=== PATIENT | male | born 1965 | race Caucasian/White ===

== ENCOUNTER 2020-11-27 21:32 | Emergency (ER) | payer MEDICAID, SELFPAY ==
[2020-11-27 21:41] VITALS: BP 101/68; PULSE 90; RESP 18; TEMP 39; O2SAT 97
--- NOTE | 2020-11-27 22:00 | DI.RAD_ITS ---
Exam(s) XR ANKLE LT COMPLETE EXAM: XR ANKLE LT COMPLETE CLINICAL HISTORY: L ankle sprain, r/o fx. TECHNIQUE: 2D digital imaging was performed. COMPARISON: No exams were available for comparison FINDINGS: There is no evidence of acute fracture or widening of mortise. No obvious abnormality in the talar d ome. Os trigonum noted. Some degenerative change in the anterior aspect of the tibiotalar joint is noted. Also dorsal bony excrescence at the talar neck. IMPRESSION: Findings as above but no acute fractures evident. DATA REPOSITORY: RADIATION DOSE DELIVERED:
--- NOTE | 2020-11-27 22:05 | W.ED.GENAD ---
Discharge Plan Disposition Patient Disposition: HOME Condition: Stable Discharge Details Clinical Impression: Left ankle sprain Primary Care Provider: Ibrahima Penn ED Provider: Kemi Pugh Home Meds and New Rx's Prescriptions: Continued trazodone 50 mg tablet 50 mg PO QHS Qty: 90 RF: 3 amlodipine 10 mg tablet 10 mg PO DAILY RF: 0 hydroxyzine HCl 25 mg tablet 25 mg PO .q8hr PRN (Reason: anxiety) RF: 0 pramipexole 0.125 mg tablet 0.125 mg PO QHS Qty: 90 RF: 0 escitalopram oxalate [Lexapro] 20 mg tablet 20 mg PO DAILY RF: 0 Discharge Instructions Instructions: Ankle Sprain (ED) Additional Instructions: Rest, ice, and elevate the affected area as much as possible. Alternate tylenol and motrin as needed and directed for pain. Follow-up with your primary care doctor in 1 week and with orthopedics if your symptoms do not improve or worsen. Return to the emergency department with any worsening or new concerning symptoms. Referrals: Fidencio Dickinson MD [ [id number] STAFF PHYSICIAN] - Discharge Data Discharge Date/Time-TO BE ENTERED AT DEPARTURE: 11/27/20 23:25 Discharge Physician: Kemi Pugh Medical Decision Making 55-year-old male presents with left ankle pain after twisting his ankle when he stepped into a pothole earlier today. A temperature of 102.2 was entered in error. Patient was afebrile. He has mild to moderate edema and tenderness to palpation to the left lateral ankle. No tenderness to palpation of foot. He is neurovascularly intact. No evidence of deformity. Patient referred for left ankle x-ray which was negative for acute findings. Patient placed in a walking boot. Advised on the importance of RICE. Given orthopedic follow-up information. Usual and customary return precautions given prior to discharge. Medical Records Medical records reviewed: Yes I reviewed the patient's medical records. Imaging Data Radiologic Study: Radiologist's impression: XR Left Ankle Exam date and time: 11/27/2020 10:06 PM Age: 55 years old Clinical indication: Other: L ankle sprain, R/O FX TECHNIQUE: Imaging protocol: XR Left ankle. Views: 3 or more views. COMPARISON: No relevant prior studies available. FINDINGS: Bones/joints: Ankle joint spacing and alignment are anatomic. [id number] marginal ankle joint degenerative spurring. No acute fracture or dislocation. Soft tissues: Normal. IMPRESSION: 1. No acute fracture. 2. Marginal ankle joint degenerative spurring. HPI General Mode of arrival: ambulatory. Date/Time Provider Initiated Documentation: 11/27/20 21:40. Limitations to Documentation: no limitations. Information obtained by: patient. HPI Narrative: Pt is a 55yo M who presents to the ED with a complaint of left ankle pain after twisting his ankle when he stepped into a pothole this morning. Patient states he is having pain in the left lateral ankle. He denies any foot pain. He has not taken any medication for pain. Related Data Home Medications Medication Instructions Recorded Confirmed amlodipine 10 mg tablet 10 mg PO DAILY 11/17/20 11/27/20 hydroxyzine HCl 25 mg tablet 25 mg PO .q8hr PRN tab 11/17/20 11/27/20 pramipexole 0.125 mg tablet 0.125 mg PO QHS #90 tab 11/17/20 11/27/20 escitalopram oxalate 20 mg tablet 20 mg PO DAILY 11/23/20 11/27/20 trazodone 50 mg tablet 50 mg PO QHS #90 tab 11/26/20 11/27/20 Previous Rx's Medication Instructions Recorded pramipexole 0.125 mg tablet 0.125 mg PO QHS #90 tab 11/17/20 trazodone 50 mg tablet 50 mg PO QHS #90 tab 11/26/20 Allergies Allergy/AdvReac Type Severity Reaction Status Date / Time lisinopril Allergy Severe facial Verified 11/27/20 21:43 swelling General Stated Complaint: Orthopedic SUMEET: 4 Review of Systems All systems reviewed & are unremarkable except as noted in HPI and below [facility] Medical History (Updated 11/27/20 @ 23:16 by Kemi Pugh DO) Anxiety and depression Cigar smoker History of alcohol dependence Hypertension Insomnia Restless leg syndrome Surgical History (Updated 11/18/20 @ 14:07 by Leyda Shaw) History of cholecystectomy History of colon resection History of ileostomy History of knee surgery Family History (Updated 11/23/20 @ 16:53 by Maliha Holland RN) Brother Alcohol abuse Father Cancer Stomach cancer Mother Depression Social History (Updated 11/26/20 @ 15:15 by Merna Reaves LPN) Smoking/Tobacco Use Status: Current-Occasional Tobacco Type: cigars Smokeless tobacco user: other Smoking risk assessment performed?: Yes Alcohol Intake: former Year quit: 2020 Drug use: Never Substance use type: does not use Adopted: No Caregiver/Support person: No Foster care: No Household members: other Housing: homeless Number of Children: 1 Communication Needs: None Education Level: high school Do you need help understanding health information?: Rarely current occupation: Unemployed - retired from [employer] Pets and animals: No Sexually active: Yes Do you think of yourself as: straight/heterosexual What is your relationship status?: How often do you talk on the phone with friends or family?: three or more times per week Do you belong to any clubs or organized social groups?: no Panel score (0-1 are the most socially isolated patients): 1 Cindi/Spiritism: Lutheran Seatbelt use: always Helmet use: Yes 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 Do you feel safe at home: Yes Do you feel safe in your relationship?: Yes Exam Const General: cooperative, healthy appearing and no acute distress HENMT Head: normal to inspection Mouth: oral mucosae normal Eyes General: appearance normal, both eyes and all related structures Neck Neck: normal visual inspection Resp Effort & Inspection: normal respiratory effort and able to speak in complete sentences Cardio Rate: regular rate Skin General skin exam: no rashes or lesions noted Neuro General: patient alert, patient awake and patient oriented x3 Motor: muscle tone normal throughout Extrem Other: Mild to moderate edema and tenderness to palpation L lateral malleolus. No ecchymoses. No deformity. No L 5th metatarsal tenderness. L DP/PT pulses intact. Psych Appearance: grossly normal Affect: normal affect Course Vital Signs Vital signs: Vital Signs Temperature 102.2 F H 11/27/20 21:41 Pulse 90 11/27/20 21:41 Respiratory Rate 18 11/27/20 21:41 Pulse Oximetry 97 11/27/20 21:41 Temperature 102.2 F H 11/27/20 21:41 Temperature Source Skin 11/27/20 21:41 Pulse 90 11/27/20 21:41 Respiratory Rate 18 11/27/20 21:41 Respiratory Effort Non-Labored 11/27/20 21:44 Blood Pressure Position Sitting 11/27/20 21:41 Pulse Oximetry 97 11/27/20 21:41 Oxygen Delivery Method Room Air 11/27/20 21:41 Oxygen Flow Rate 0 11/27/20 21:41 Pain Level 0 11/27/20 21:58
[2020-11-27 22:10] VITALS: BP 117/73; PULSE 80; RESP 16; TEMP 37; O2SAT 97
[2020-11-27] MEDS: Ibuprofen 600 MG TAB PO (22:39)
--- NOTE | 2020-11-27 22:48 | DI.VRAD_ITS ---
PROCEDURE INFORMATION: Exam: XR Left Ankle Exam date and time: 11/27/2020 10:06 PM Age: 55 years old Clinical indication: Other: L ankle sprain, R/O FX TECHNIQUE: Imaging protocol: XR Left ankle. Views: 3 or more views. COMPARISON: No relevant prior studies available. FINDINGS: Bones/joints: Ankle joint spacing and alignment are anatomic. [id number] marginal ankle joint degenerative spurring. No acute fracture or dislocation. Soft tissues: Normal. IMPRESSION: 1. No acute fracture. 2. Marginal ankle joint degenerative spurring. Dictated and Authenticated by: Jonathan Jones MD. Ordering:ABIMAEL Mcmullen MD
[2020-11-27] MEDS: oxyCODONE 5 MG TAB PO (23:26)
== END 2020-11-27 23:25 | disposition home or self-care (01) ==
PROVIDERS: Emergency Provider Physician Assistant; PCP Family Medicine
DX: S93.492A Sprain of other ligament of left ankle, initial encounter (principal); W17.2XXA Fall into hole, initial encounter; X50.9XXA Other and unspecified overexertion or strenuous movements or postures, initial encounter
CPT/HCPCS: 29515; 99283; 73610

== ENCOUNTER → 2021-06-30 12:45 | Outpatient (CLI) | payer BC, MEDICAID, SELFPAY ==
--- NOTE | 2021-06-30 10:50 | DI.RAD_ITS ---
Exam(s) XR THUMB LT EXAM: XR THUMB LT CLINICAL HISTORY: LT THUMB PAIN, M79.645, DECREASED STRENGTH, EVAL FOR ARTHRITIC CHANGES. TECHNIQUE: 2D digital imaging was performed. COMPARISON: No exams were available for comparison FINDINGS: 3 views No evidence of fracture nor dislocation phalanges. However, there is a small 1-2 millimeter calcific density seen adjacent to the neck the thumb metacarpal. This of questionable significance. Correla tion with site of tenderness is recommended. No erosions evident. No radiopaque foreign body. IMPRESSION: DATA REPOSITORY: RADIATION DOSE DELIVERED:
== END ==
PROVIDERS: PCP Family Medicine; Visit Provider Physician Assistant Medical
DX: M79.645 Pain in left finger(s) (principal); R93.7 Abnormal findings on diagnostic imaging of other parts of musculoskeletal system
CPT/HCPCS: 73140

== ENCOUNTER 2021-07-12 19:11 | Inpatient (IN) | payer BC, MEDICAID, SELFPAY ==
[2021-07-12] VITALS (18 sets, daily range): BP systolic 141–178; BP diastolic 68–131; PULSE 68–103; RESP 14–22; O2SAT 85–97
--- NOTE | 2021-07-12 20:15 | RT.EKG_ITS ---
APPROVED REPORT Exam: Resting ECG Reason for Exam: JORG ELUIS BUNN Patient Location: E HR:67 bpm ECG Measurements Heart Rate 67 AXIS TN 150 P 39 QRSd 99 QRS -17 QT 384 T 60 QTc 405 Conclusion Sinus rhythm...normal P axis, V-rate 60- 99
[2021-07-12 22:02] LABS: Abs Immature Grans 0.03 10^3/uL (0.0-0.06); Absolute Basophil Count 0.03 10^3/uL (0.0-0.2); Absolute Eosinophil Count 0.17 10^3/uL (0.0-0.7); Absolute Lymphocyte Count 3.02 10^3/uL (1.2-3.4); Absolute Monocyte Count 0.88 10^3/uL (0.1-0.8); Absolute Neutrophil Count 5.39 10^3/uL (1.2-6.7); Basophils % 0.3; Eosinophils % 1.8; HGB 15.6 g/dL (13.5-17.5); Immature Grans % 0.3; Lymphocytes % 31.7; MCH 30.1 pg (27.0-33.0); MCHC 33.9 % (32.0-36.0); MCV 88.8 fL (80-95); MPV 10.7 fL (8.0-11.0); Monocytes % 9.2; Neutrophils % 56.7; Nucleated RBC 0 %; Platelet Count 211 10^3/uL (130-400); RBC 5.18 10^6/uL (4.36-5.78); RDW 13.4 % (11.8-14.1); RDW-SD 44.2 fL; WBC 9.52 10^3/uL (4.4-10.8)
[2021-07-12 22:17] LABS: ALT 75 U/L (16-63); AST 57 U/L (15-37); Albumin 4.1 g/dL (3.4-5.0); Alkaline Phosphatase 255 U/L (46-116); Anion Gap 13.8 mmol/L (3-11); BUN 17 mg/dL (7-18); Bilirubin, Total 0.4 mg/dL (0.2-1.0); CO2 23.2 mmol/L (21.0-32.0); CREATININE 0.7 mg/dL (0.70-1.30); Calcium 9.1 mg/dL (8.5-10.1); Chloride 102 mmol/L (98-107); Glucose 90 mg/dL (74-106); Potassium 3.6 mmol/L (3.5-5.1); Sodium 139 mmol/L (136-145); Total Protein 9.1 g/dL (6.4-8.2)
[2021-07-12] MEDS: Normal Saline 1,000 ML 1000 ML IV (22:39)
[2021-07-12] MEDS: Albuterol/Ipratropium 3 ML UPD VIAL UPD (22:39)
[2021-07-12] MEDS: methylPREDNISolone SUCC 125 MG VIAL IVP (22:40)
--- NOTE | 2021-07-12 22:44 | W.ED.GENAD ---
Discharge Plan Disposition Patient Disposition: [facility] INPATIENT Condition: Fair Discharge Details Clinical Impression: Cough, Hypoxia Admit Date/Time: 07/13/21 05:11 Admit Provider: Jonathan Li Attending Provider: Jonathan Li Primary Care Provider: Ibrahima Penn ED Provider: Gabriela Kaplan Medical Decision Making 56-year-old male presents to the ER with chief complaint of upper respiratory type symptoms. 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 He reports diarrhea that began on . He endorses shortness of breath, fever, chest pain and lightheadedness. He is a daily smoker past medical history includes restless leg syndrome, alcohol dependence, anxiety depression, hypertension. Surgical history includes cholecystectomy, colon resection, ileostomy knee surgery. On inital exam patient has scattered expiratory wheezes and rhonchi in bases. Congested cough noted. CBC, CMP, CT chest abdomen pelvis ordered. DuoNeb, 125 Solu-Medrol IV ordered. Differential diagnosis includes anomaly to COVID-19, pneumonia, CHF, coronary artery disease. Rapid Covid is negative, CBC shows no leukocytosis, sodium potassium within normal limits anion gap 13.8, AST is 57, ALT 75, alk phos 255, Serial troponins, EKG and proBNP added on the labs. Informed by social staff worker that patient desatted to 85%. Patient was placed on 2 L nasal cannula. Care is to be handed off to oncoming provider Dr. Kaitlin Bower pending CT and disposition. DiSabatino 4: 24 patient resting more comfortably after nebs and steroids, still with some rhonchorous breath sounds of the wheezing has improved, saturating mid 90s on 1 L nasal cannula. Concern for developing COPD given history of chronic smoking. Must also consider early viral pneumonia or bacterial pneumonia however no definitive infiltrate on x-ray. Will be admitted for continued oxygen therapy and further evaluation. Lab Data Lab results reviewed: Yes I reviewed the patient's lab results. HPI General Mode of arrival: ambulatory. Date/Time Provider Initiated Documentation: 07/12/21 19:43. Limitations to Documentation: no limitations. Information obtained by: patient, RN notes reviewed and old records reviewed. HPI Narrative: 56-year-old male presents to the ER with chief complaint of upper respiratory type symptoms. Per patient report,he was told by his PCP to be seen in urgent care today however patient did not go. 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 He reports diarrhea that began on . He endorses shortness of breath, fever, chest pain and lightheadedness. He is a daily smoker, past medical history includes restless leg syndrome, alcohol dependence, anxiety depression, hypertension. Surgical history includes cholecystectomy, colon resection, ileostomy knee surgery. Related Data Home Medications Medication Instructions Recorded Confirmed escitalopram oxalate 20 mg tablet 20 mg PO DAILY 11/23/20 03/02/21 (Lexapro) sildenafil 50 mg tablet 50 mg PO DAILY PRN #20 tab 03/02/21 07/12/21 pramipexole 0.125 mg tablet 0.125 mg PO QHS #90 tab 03/08/21 amlodipine 10 mg tablet 10 mg PO DAILY #90 tab 05/28/21 07/12/21 hydroxyzine HCl 25 mg tablet 25 mg PO .q8hr PRN #90 tab 05/28/21 07/12/21 trazodone 100 mg tablet 100 mg PO QHS PRN #90 tab 05/28/21 Previous Rx's Medication Instructions Recorded sildenafil 50 mg tablet 50 mg PO DAILY PRN #20 tab 03/02/21 pramipexole 0.125 mg tablet 0.125 mg PO QHS #90 tab 03/08/21 amlodipine 10 mg tablet 10 mg PO DAILY #90 tab 05/28/21 hydroxyzine HCl 25 mg tablet 25 mg PO .q8hr PRN #90 tab 05/28/21 trazodone 100 mg tablet 100 mg PO QHS PRN #90 tab 05/28/21 Allergies Allergy/AdvReac Type Severity Reaction Status Date / Time lisinopril Allergy Severe facial Verified 07/12/21 22:42 swelling General Stated Complaint: RespSymp SUMEET: 3 Review of Systems All systems reviewed & are unremarkable except as noted in HPI and below Cardiovascular Cardiovascular: Reports dyspnea Respiratory Respiratory: Reports chest congestion, Reports cough, Denies hemoptysis, Reports excessive phlegm production and Reports dyspnea Gastrointestinal Gastrointestinal: Reports diarrhea PFSH All Active Problems (Updated 07/13/21 @ 11:30 by Néstor Valverde) Gastritis (Acute) DVT prophylaxis (Acute) COPD (chronic obstructive pulmonary disease) with acute bronchitis (Acute) Cough (Acute) Hypoxia (Acute) SARS-CoV-2 positive (Acute) Erectile dysfunction (Acute) Cervical arthritis (Acute) Left ankle sprain (Acute) Insomnia (Acute) Restless leg syndrome (Acute) Cigar smoker (Acute) Anxiety and depression (Chronic) History of alcohol dependence (Acute) Hypertension (Chronic) Surgical History History of cholecystectomy History of colon resection History of ileostomy History of knee surgery Family History Brother Alcohol abuse Father Cancer Stomach cancer Mother Depression Social History Smoking/Tobacco Use Status: Current-Occasional Tobacco Type: cigars Smokeless tobacco user: other Smoking risk assessment performed?: Yes Alcohol Intake: former Year quit: 2020 Drug use: Never Substance use type: does not use Adopted: No Caregiver/Support person: No Foster care: No Household members: other Housing: homeless Number of Children: 1 Communication Needs: None Education Level: high school Do you need help understanding health information?: Rarely current occupation: Unemployed - retired from [employer] Pets and animals: No Sexually active: Yes Do you think of yourself as: straight/heterosexual What is your relationship status?: How often do you talk on the phone with friends or family?: three or more times per week Do you belong to any clubs or organized social groups?: no Panel score (0-1 are the most socially isolated patients): 1 Cindi/Taoist: Hoahaoism Seatbelt use: always Helmet use: Yes 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 Constitutional: Alert and oriented x3. Appears stated age. Normal body habitus. Head: Normocephalic, Chest: RRR, Normal S1, S2, distal pulses intact. Resp: Expiratory wheezes scattered through the upper lobes bilaterally, diminished in some rhonchi noted to the lower lobe bilaterally. Abdomen: Soft, non-distended, Normoactive bowel sounds all 4 quads. Musculoskeletal: Normal gait, 5/5 strength to all four extremities. Skin: Capillary refill less than 2 sec. Neurologic: No focal neuro deficits noted. Course Vital Signs Vital signs: Vital Signs Pulse 79 07/12/21 19:39 Respiratory Rate 18 07/12/21 19:39 Blood Pressure 141/83 H 07/12/21 19:39 Pulse Oximetry 93 07/12/21 19:39 Pulse 79 07/12/21 19:39 Respiratory Rate 18 07/12/21 19:39 Respiratory Effort 07/12/21 22:41 Blood Pressure 141/83 H 07/12/21 19:39 Blood Pressure Position Sitting 07/12/21 19:39 Pulse Oximetry 93 07/12/21 19:39 Oxygen Delivery Method Room Air 07/12/21 19:39 Oxygen Flow Rate 0 07/12/21 19:39 Lab/Test Results Lab/Test Results: 07/12/21 21:52 Blood Blood Culture - Pending 07/12/21 21:41 Blood Blood Culture - Pending Laboratory Tests Range/Units 07/12/21 07/12/21 21:41 21:41 WBC (4.4-10.8) 10^3/uL 9.52 RBC (4.36-5.78) 10^6/uL 5.18 Hgb (13.5-17.5) g/dL 15.6 Hct (40.0-50.0) % 46.0 MCV (80-95) fL 88.8 MCH (27.0-33.0) pg 30.1 MCHC (32.0-36.0) % 33.9 RDW (11.8-14.1) % 13.4 Plt Count (130-400) 10^3/uL 211 MPV (8.0-11.0) fL 10.7 Immature Gran % 0.3 Neutrophils % 56.7 Lymphocytes % 31.7 Monocytes % 9.2 Eosinophils % 1.8 Basophils % 0.3 Nucleated RBC % % 0 Absolute Neutrophils (1.2-6.7) 10^3/uL 5.39 Absolute Lymphocytes (1.2-3.4) 10^3/uL 3.02 Absolute Monocytes (0.1-0.8) 10^3/uL 0.88 H Absolute Eosinophils (0.0-0.7) 10^3/uL 0.17 Absolute Basophils (0.0-0.2) 10^3/uL 0.03 Sodium (136-145) mmol/L 139 Potassium (3.5-5.1) mmol/L 3.6 Chloride (98-107) mmol/L 102 Carbon Dioxide (21.0-32.0) mmol/L 23.2 Anion Gap (3-11) mmol/L 13.8 H BUN (7-18) mg/dL 17 Creatinine (0.70-1.30) mg/dL 0.7 Estimated GFR/1.73 m2 (mL/min/1.73m2) >= 60.00 Glucose (74-106) mg/dL 90 Calcium (8.5-10.1) mg/dL 9.1 Total Bilirubin (0.2-1.0) mg/dL 0.4 AST (15-37) U/L 57 H ALT (16-63) U/L 75 H Alkaline Phosphatase (46-116) U/L 255 H Total Protein (6.4-8.2) g/dL 9.1 H Albumin (3.4-5.0) g/dL 4.1
[2021-07-12 22:54] LABS: Source Nasal/Nares
[2021-07-12 23:34] LABS: COVID-19 PCR Negative (Negative)
[2021-07-13] VITALS (63 sets, daily range): BP systolic 99–157; BP diastolic 62–102; PULSE 65–101; RESP 2–24; TEMP 36.5–37.1; O2SAT 89–95
--- NOTE | 2021-07-13 00:01 | DI.CT_ITS ---
Exam(s) CT CHEST PE ABD PELVIS W EXAM: CT CHEST PE ABD PELVIS W CLINICAL HISTORY: SOB, PUI, R/O PNA, PE ,Diarrhea, transaminases. TECHNIQUE: Imaging Protocol: Axial CT angiography was performed with multi-slice acquisition and mu lti-planar and/or 3D reconstructions. CONTRAST MATERIAL: Intravenous: Omnipaque 350 Contrast volume:100 mL COMPARISON: No exams were available for comparison FINDINGS: CHEST: Tracheobronchial tree: Patent where visualized. Pulmonary parenchyma: No consolidation or dominant measurable mass. No architectural distortion. Ther e does appear to be mild prominence of the interstitium in the lungs particularly on the right. Pulmonary Arteries: No evidence of filling defect to suggest pulmonary emboli. Mediastinum and Emeli: No dominant adenopathy or fluid collection. The esophagus is unremarkable. Visualized thyroid gland: Unremarkable. Pleura: No effusion or pneumothorax. Heart: The heart is not dilated. Coronary artery calcifications are present. No pericardial effusion . Aorta: Thoracic aorta non-dilated. No evidence of dissection. Atherosclerosis. Bones: Within normal limits for the patient's age. Soft tissues: Unremarkable. ABDOMEN: Liver: Normal density. No measurable mass. Portal, Superior Mesenteric, and Splenic Veins: Unremarkable. Gallbladder and Biliary Tract: Status post cholecystectomy. No biliary ductal dilatation. Pancreas: Normal density, no abnormal calcifications or inflammatory process. Spleen: Normal. Adrenals: No masses seen. Kidneys: Normal size, contour and axis. No radiodense stones or obstructive uropathy. No masses seen. Abdominal Aorta: Abdominal portion non-dilated. Atherosclerosis. Bowel: There is no evidence of bowel obstruction. Postsurgical changes are seen at the rectosigmoid junction and the distal small bowel. There is diverticulosis in the colon, but no evidence of acute diverticulitis. No evidence of appendicitis. There is mild wall thickening in loops of small bowel in the left abdomen suspicious for an enteritis. Peritoneal Cavity: No ascites, collection or mesenteric inflammatory response. No free air. Lymph Nodes: Within normal limits. Bones: Within normal limits for the patient's age. Soft Tissues: Small fat containing left inguinal hernia. PELVIS: Bladder: Symmetric distention, no gross wall thickening. Reproductive Organs: Unremarkable as visualized. Lymph Nodes: Within normal limits. Bones: Within normal limits. IMPRESSION: 1. No evidence pulmonary embolism, thoracic aortic dissection or aneurysm. 2. Question of mild interstitial thickening particularly in the right lung. Edema, inflammation or i nfection should be considered. Please correlate clinically. 3. Findings suspicious for enteritis. RADIATION DOSE DELIVERED: 1,182.92mGy.cm Total DLP DATA REPOSITORY: All CT scans at this facility are submitted to the National Radiology Data Registry (NRDR) Dose Index Registry (DIR) with the [employer] [place] [employer] (ACR). RADIATION OPTIMIZATION: All CT scans at this facility use at least one of these dose optimization te chniques: automated exposure control; mA and/or kV adjustment per patient size (includes targeted exa ms where dose is matched to clinical indication); or iterative reconstruction.
[2021-07-13] MEDS: Dexamethasone 10 MG/ML VIAL IVP (00:52)
[2021-07-13] MEDS: Albuterol/Ipratropium 3 ML UPD VIAL UPD ×4 (00:52→17:49)
[2021-07-13 01:23] LABS: NT-proBNP 21 pg/mL (<300); Troponin I < 50 ng/L (<or=60)
[2021-07-13] MEDS: Omnipaque 350 MG/ML 100 ML BTL IJ (01:25)
--- NOTE | 2021-07-13 02:01 | DI.VRAD_ITS ---
PROCEDURE INFORMATION: Exam: CTA Chest With Contrast Exam date and time: 07/13/2021 1:10 AM Age: 56 years old Clinical indication: Shortness of breath; Prior surgery; Surgery type: Colon resection, ileostomy, cholecystectomy; Patient HX: SOB, pui, R/O pna, pe , diarrhea, transaminases TECHNIQUE: Imaging protocol: Computed tomographic angiography of the chest with contrast. 3D rendering (Not supervised by radiologist): MIP and/or 3D reconstructed images were created by the technologist. Total images: [id number] Radiation optimization: All CT scans at this facility use at least one of these dose optimization techniques: automated exposure control; mA and/or kV adjustment per patient size (includes targeted exams where dose is matched to clinical indication); or iterative reconstruction. Contrast material: [id number]; Contrast volume: 100 ml; Contrast route: INTRAVENOUS (IV); COMPARISON: No relevant prior studies available. FINDINGS: Pulmonary arteries: The pulmonary arteries enhance appropriately with no evidence of pulmonary embolism. Aorta: The aorta enhances appropriately without evidence of dissection or aneurysm. No mediastinal hematoma. The aorta demonstrates mild ectasia/tortuosity and mild calcific atherosclerosis. Thyroid: The visualized thyroid gland demonstrates no gross abnormality. Lungs: Mild bilateral bronchial wall thickening consistent with bronchitis or bronchial edema. No bronchiectasis. A few short segment bronchial occlusions in the posterior right base probably relate to mucous plugging/secretions. Minor reticulonodular changes in the lateral right lower lobe and to a lesser degree the central right middle lobe and peripheral upper lobes suggesting changes of small airways disease, consider atypical infection. No consolidations. No pulmonary mass lesions are identified. Pleural spaces: No pleural effusion. No pneumothorax. Heart: Heart size normal. Moderate coronary artery calcification. No pericardial effusion. Mediastinal space: The esophagus is largely contracted but demonstrates no gross abnormality. Lymph nodes: No supraclavicular or axillary adenopathy. No mediastinal or hilar adenopathy. Bones/joints: No acute osseous abnormalities are identified. Chronic healed left anterolateral rib fractures. Soft tissues: Mild soft tissue stranding/edema in the posterior peripheral subcutaneous tissues suggesting mild volume overload or anasarca. IMPRESSION: 1. No evidence of pulmonary embolism or aortic dissection. 2. Bronchial wall thickening suggesting bronchitis/bronchiolitis versus bronchial edema. 3. Minor peripheral reticulonodular changes bilaterally likely reflecting changes of small airways disease, consider atypical infection. No consolidations. 4. Mild posterior soft tissue edema/stranding suggesting mild generalized volume overload/anasarca. PROCEDURE INFORMATION: Exam: CT Abdomen And Pelvis With Contrast Exam date and time: 07/13/2021 1:10 AM Age: 56 years old Clinical indication: Shortness of breath; Prior surgery; Surgery type: Colon resection, ileostomy, cholecystectomy; Patient HX: SOB, pui, R/O pna, pe , diarrhea, transaminases TECHNIQUE: Imaging protocol: Computed tomography of the abdomen and pelvis with contrast. Radiation optimization: All CT scans at this facility use at least one of these dose optimization techniques: automated exposure control; mA and/or kV adjustment per patient size (includes targeted exams where dose is matched to clinical indication); or iterative reconstruction. Contrast material: [id number]; Contrast volume: 100 ml; Contrast route: INTRAVENOUS (IV); COMPARISON: No relevant prior studies available. FINDINGS: Mediastinal space: The visualized distal esophagus is largely contracted without gross abnormality. Liver: Question slight peripheral liver contour irregularity suspicious for mild changes of cirrhosis. No mass lesions. No intrahepatic biliary ductal dilatation. Mildly dilated main portal vein measuring 2.0 cm diameter. No sites of portosystemic shunting or identified. Gallbladder and bile ducts: Prior cholecystectomy with no significant dilatation of the common bile duct. Pancreas: Normal. No inflammatory changes or ductal dilation. Spleen: Normal. No splenomegaly. Adrenal glands: Normal. No adrenal mass. Kidneys and ureters: Mild bilateral symmetrical perinephric stranding which is nonspecific and age indeterminate. This may relate to perirenal scarring or edema. Clinical/laboratory correlation is recommended to exclude evidence of medical renal disease. No hydronephrosis or hydroureter. No urinary tract stones are identified. No gross parenchymal changes of pyelonephritis. No abscess. 5 mm left renal cortical cyst does not require further assessment. Stomach and bowel: The stomach is largely contracted without gross abnormality. Question mildly excessive fluid content in the mid and distal small bowel segments with equivocal slight increase in bowel wall enhancement. This is suspicious for mild gastroenteritis. No jack bowel dilatation or transition point. No evidence of bowel obstruction, perforation, or abscess. Right lower quadrant small bowel anastomosis without gross anastomotic complication. No acute colonic abnormalities. Sigmoid anastomosis without gross complication. Mild distal colonic diverticulosis without changes of diverticulitis. Appendix: The appendix is normal in caliber and demonstrates no evidence of appendicitis. Intraperitoneal space: No free fluid or air. Vasculature: Moderate atherosclerotic aortoiliac calcification without aneurysm. Lymph nodes: No adenopathy. Urinary bladder: Unremarkable as visualized. Reproductive: Unremarkable as visualized. Bones/joints: No acute osseous abnormalities. Soft tissues: Small fatty left inguinal hernia with no associated bowel herniation or evidence of strangulation.. IMPRESSION: 1. Question mild changes of gastroenteritis. No evidence of bowel obstruction or perforation. 2. The liver demonstrates mild peripheral contour irregularity suspicious for mild changes of cirrhosis. Mildly dilated main portal vein suspicious for an element of portal hypertension. No splenomegaly or ascites. No sites of suspected portosystemic shunting. No appendix mass lesions or biliary dilatation. 3. Mild bilateral symmetrical perinephric stranding which is nonspecific and age indeterminate. This may relate to perirenal scarring or edema. Clinical/laboratory correlation is recommended to exclude evidence of medical renal disease. 4. Mild diverticulosis involving the distal colon without evidence of acute diverticulitis. 5. Additional nonemergent findings detailed above. Dictated and Authenticated by: Al Bowser MD. Ordering:SY Ochoa MD
[2021-07-13 04:09] LABS: Troponin I < 50 ng/L (<or=60)
--- NOTE | 2021-07-13 04:54 | HPE_ITS ---
Date of service: 07/13/21 Time of Service: 04:55 Assessment and Plan Assessment and plan (1) COPD (chronic obstructive pulmonary disease) with acute bronchitis: Status: Acute Assessment and plan: COPD, with bronchitis vs. atypical pneumonia. Note that this will constitute new formal diagnosis of COPD. Will continue steroids and updrafts and will add abx. Reviewed diagnosis of COPD with patient and relation to smoking, and advised he should work on quitting going forward. History of Present Illness History of Present Illness Chief Complaint: cough, SOB Narrative: 56 male smoker, no prior diagnosis of COPD but does endorse prior episodes of wheezing; h/o COVID approx 6 weeks [employer], from which he largely recovered save for some residual weakness; works in a school and also recent trip to [place] -- here with 10 days of cough productive of clear sputum and COWART. No CP other than a sense of tightness, which refers to the same sense of SOB. Some chills, and some watery diarrhea (approx 2/day). No rhinorhhea or soire throat. In ER findings of note for O2 sats 80s on RA; diffuse wheeze; white count 9.5 w/o shift; CT showing peribronchial edema and scattered reticulonodular changes in lungs. COVID is negative. Patient placed on 1L O2 with sats mid 90s, given duonb and steroids. I was asked to evaluate for admission. Patient states he has not noticed any clear improvement yet. Continues to smoke approx 1/2 PPD. Review of Systems Narrative: per HPI PFSH All Active Problems (Updated 07/13/21 @ 05:07 by Jonathan Li MD) COPD (chronic obstructive pulmonary disease) with acute bronchitis (Acute) Cough (Acute) Hypoxia (Acute) SARS-CoV-2 positive (Acute) Erectile dysfunction (Acute) Cervical arthritis (Acute) Left ankle sprain (Acute) Insomnia (Acute) Restless leg syndrome (Acute) Cigar smoker (Acute) Anxiety and depression (Chronic) History of alcohol dependence (Acute) Hypertension (Chronic) Surgical History History of cholecystectomy History of colon resection History of ileostomy History of knee surgery Family History Brother Alcohol abuse Father Cancer Stomach cancer Mother Depression Social History Smoking/Tobacco Use Status: Current-Occasional Tobacco Type: cigars Smokeless tobacco user: other Smoking risk assessment performed?: Yes Alcohol Intake: former Year quit: 2020 Drug use: Never Substance use type: does not use Adopted: No Caregiver/Support person: No Foster care: No Household members: other Housing: homeless Number of Children: 1 Communication Needs: None Education Level: high school Do you need help understanding health information?: Rarely current occupation: Unemployed - retired from [employer] Pets and animals: No Sexually active: Yes Do you think of yourself as: straight/heterosexual What is your relationship status?: How often do you talk on the phone with friends or family?: three or more times per week Do you belong to any clubs or organized social groups?: no Panel score (0-1 are the most socially isolated patients): 1 Cindi/Jew: Evangelical Seatbelt use: always Helmet use: Yes 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 Do you feel safe at home: Yes Do you feel safe in your relationship?: Yes Meds Allergies and Home Medications Allergies Allergy/AdvReac Type Severity Reaction Status Date / Time lisinopril Allergy Severe facial Verified 07/12/21 22:42 swelling Home Medications Medication Instructions Recorded Confirmed Type escitalopram oxalate 20 mg tablet 20 mg PO DAILY 11/23/20 03/02/21 History (Lexapro) sildenafil 50 mg tablet 50 mg PO DAILY PRN #20 tab 03/02/21 07/12/21 Rx pramipexole 0.125 mg tablet 0.125 mg PO QHS #90 tab 03/08/21 Rx amlodipine 10 mg tablet 10 mg PO DAILY #90 tab 05/28/21 07/12/21 Rx hydroxyzine HCl 25 mg tablet 25 mg PO .q8hr PRN #90 tab 05/28/21 07/12/21 Rx trazodone 100 mg tablet 100 mg PO QHS PRN #90 tab 05/28/21 Rx Exam Narrative Exam Narrative: 151/81, 77, 37.1, 17, 91 (RA. 94 during visit on 1L). HEENT atraumatic; neck supple; lungs diffuse coarse wheeze; heart RRR; abdomen soft and NT; extremities w/o edema; neuro Ox3, lucid, moves all 4s Results Labs Result diagrams: 07/12/21 21:41 07/12/21 21:41 Labs: Laboratory Results - last 24 hr 07/12/21 07/12/21 07/12/21 21:41 21:41 22:40 WBC 9.52 RBC 5.18 Hgb 15.6 Hct 46.0 MCV 88.8 MCH 30.1 MCHC 33.9 RDW 13.4 Plt Count 211 MPV 10.7 Immature Gran % 0.3 Neutrophils % 56.7 Lymphocytes % 31.7 Monocytes % 9.2 Eosinophils % 1.8 Basophils % 0.3 Nucleated RBC % 0 Absolute Neutrophils 5.39 Absolute Lymphocytes 3.02 Absolute Monocytes 0.88 H Absolute Eosinophils 0.17 Absolute Basophils 0.03 Sodium 139 Potassium 3.6 Chloride 102 Carbon Dioxide 23.2 Anion Gap 13.8 H BUN 17 Creatinine 0.7 Estimated GFR/1.73 m2 >= 60.00 Glucose 90 Calcium 9.1 Total Bilirubin 0.4 AST 57 H ALT 75 H Alkaline Phosphatase 255 H Troponin I NT-Pro-B Natriuret Pep Total Protein 9.1 H Albumin 4.1 COVID-19 Source Nasal/Nares SARS-CoV-2 (PCR) Negative 07/13/21 07/13/21 00:57 03:16 WBC RBC Hgb Hct MCV MCH MCHC RDW Plt Count MPV Immature Gran % Neutrophils % Lymphocytes % Monocytes % Eosinophils % Basophils % Nucleated RBC % Absolute Neutrophils Absolute Lymphocytes Absolute Monocytes Absolute Eosinophils Absolute Basophils Sodium Potassium Chloride Carbon Dioxide Anion Gap BUN Creatinine Estimated GFR/1.73 m2 Glucose Calcium Total Bilirubin AST ALT Alkaline Phosphatase Troponin I < 50 < 50 NT-Pro-B Natriuret Pep 21 Total Protein Albumin COVID-19 Source SARS-CoV-2 (PCR) Last Vital Signs Temp 37.1 C 07/13/21 01:30 Pulse 77 07/13/21 01:23 Resp 17 07/13/21 01:23 BP 151/81 H 07/13/21 01:23 Pulse Ox 91 L 07/13/21 01:23
[2021-07-13] MEDS: DOXYCYCLINE 100 MG in Normal Saline 100 ML IVPB ×2 (06:19→18:16)
[2021-07-13] MEDS: Normal Saline Flush 10 ML SYR IVP ×2 (06:19→08:19)
[2021-07-13] MEDS: methylPREDNISolone SUCC 40 MG VIAL IVP (06:19)
[2021-07-13] MEDS: amLODIPine 10 MG TAB PO (08:19)
[2021-07-13] MEDS: Acetaminophen 325 MG TAB 650 MG PO ×2 (09:33→14:54)
--- NOTE | 2021-07-13 11:05 | PGE_ITS ---
Date of Service Date of service: 07/13/21 Time of Service: 11:05 Assessment and Plan Assessment and plan (1) COPD (chronic obstructive pulmonary disease) with acute bronchitis: Status: Acute Assessment and plan: patient received soluemedrol while in the ER. I will add prednisone to his daily treatment. cont. doxycycline and scheduled and prn nebulizers. Will have RT give him Acapella and IS and encourage cough and deep breathing. Attempt sputum culture. Encourage mobilization/ambulation. Use nicotine patch (2) History of alcohol dependence: Status: Acute Assessment and plan: monitor CIWA scores; give MVS, thiamine and folic acid (3) Hypertension: Status: Chronic Assessment and plan: cont. amlodipine (4) Gastritis: Status: Acute Assessment and plan: patient admits to having dyspepsia and weak stomach. He is not taking any PPI at home. He had previous EGD and C-scope 3 yr ago in [place]. He had prior diverticulitis and partial colon resection. I will add Protonix to his regimen particularly since he will be on prednisone for a few days. (5) DVT prophylaxis: Status: Acute Assessment and plan: lovenox SC (6) Cirrhosis: Status: Suspected Assessment and plan: CT findings suspicious for cirrhosis (nodular contour to his liver, no mass lesions but mildly dilated poral vein, ?portal hypertension). will check hepatitis studies but probably d/t alcoholic liver disease Subjective Subjective Interval history since last seen: See admission H&P for details of his presentation. patient was admitted to ICU as med/surg overflow for acute COPD exacerbation and bronchitis/atypical pneumonia. He has no fever or rigors but has harsh cough minimall productive. CTA chest neg. for PE but has peribronchial cuffing and diffuse peripheral reticulonodular changes c/w small airway disease. Patient continues to smoke 1/2 ppd. He has never had a formal dx of COPD but has long smoking hx. CT abdomen and pelvis demonstrates cirrhosis, findings suspicious for gastritis and mildly dilated portal veins suspicious for portal hypertension. Patient is a reformed alcoholic who says that he has been abstinent since September 2020 after he got out of [facility] for alcohol rehab. He formerly had problems w/ alcohol withdrawal but none since leaving [facility] last summer Exam Narrative Exam Narrative: Middle age white male lying in bed, alert, calm, oriented Lungs: diffuse coarse rhonchi and expiratory wheezing Heart: RRR Abdomen: soft, nontender Extremities: no edema Objective Last Vital Signs Temp 36.5 C 07/13/21 05:30 Pulse 88 07/13/21 05:30 Resp 15 07/13/21 05:30 BP 147/74 H 07/13/21 05:30 Pulse Ox 93 07/13/21 05:30 Laboratory Results - last 24 hr 07/12/21 07/12/21 07/12/21 21:41 21:41 22:40 WBC 9.52 RBC 5.18 Hgb 15.6 Hct 46.0 MCV 88.8 MCH 30.1 MCHC 33.9 RDW 13.4 Plt Count 211 MPV 10.7 Immature Gran % 0.3 Neutrophils % 56.7 Lymphocytes % 31.7 Monocytes % 9.2 Eosinophils % 1.8 Basophils % 0.3 Nucleated RBC % 0 Absolute Neutrophils 5.39 Absolute Lymphocytes 3.02 Absolute Monocytes 0.88 H Absolute Eosinophils 0.17 Absolute Basophils 0.03 Sodium 139 Potassium 3.6 Chloride 102 Carbon Dioxide 23.2 Anion Gap 13.8 H BUN 17 Creatinine 0.7 Estimated GFR/1.73 m2 >= 60.00 Glucose 90 Calcium 9.1 Total Bilirubin 0.4 AST 57 H ALT 75 H Alkaline Phosphatase 255 H Troponin I NT-Pro-B Natriuret Pep Total Protein 9.1 H Albumin 4.1 COVID-19 Source Nasal/Nares SARS-CoV-2 (PCR) Negative 07/13/21 07/13/21 00:57 03:16 WBC RBC Hgb Hct MCV MCH MCHC RDW Plt Count MPV Immature Gran % Neutrophils % Lymphocytes % Monocytes % Eosinophils % Basophils % Nucleated RBC % Absolute Neutrophils Absolute Lymphocytes Absolute Monocytes Absolute Eosinophils Absolute Basophils Sodium Potassium Chloride Carbon Dioxide Anion Gap BUN Creatinine Estimated GFR/1.73 m2 Glucose Calcium Total Bilirubin AST ALT Alkaline Phosphatase Troponin I < 50 < 50 NT-Pro-B Natriuret Pep 21 Total Protein Albumin COVID-19 Source SARS-CoV-2 (PCR) Reviewed Pertinent PMH: Yes Objective Narrative Objective Narrative: Report from CT chest, abdomen and pelvis was reviewed.
--- NOTE | 2021-07-13 11:31 | INITIAL_ITS ---
- If Service Date Differs Date of service: 07/13/21 Time of Service: 11:31 Care Management Initial Assess REASON FOR HOSPITALIZATION:: COPD PAST MEDICAL HISTORY/PAST SURGICAL HISTORY:: All Active Problems. COPD (chronic obstructive pulmonary disease) with acute bronchitis (Acute). Cough (Acute). Hypoxia (Acute). SARS-CoV-2 positive (Acute). Erectile dysfunction (Acute). Cervical arthritis (Acute). Left ankle sprain (Acute). Insomnia (Acute). Res tless leg syndrome (Acute). Cigar smoker (Acute). Anxiety and depression (Chronic). History of alcohol dependence (Acute). Hypertension (Chronic). Surgical History. History of cholecystectomy. History of colon resection. History of ileostomy. History of knee surgery PREVIOUS FUNCTIONAL STATUS/SOCIAL/FAMILY SUPPORTS:: Carlos lives in [place] with his girlfriend. His mother lives in [place], and is identified as a support. He works for the [employer]. He is independent at baseline. CURRENT FUNCTIONAL STATUS:: Carlos was lying in bed when CM met with him. He reported that he was starting to feel better, but is still not well. He stated that per MD, he will likely be inpatient for a couple of days, and he is comfortable with that plan. He doesn't expect that he will require any services upon discharge, but would like a return to work letter. CM will continue to follow. ADVANCE DIRECTIVES:: Not on file. Has patient been provided with info about the portal/API?: Yes Did the patient sign up for the portal?: No CODE STATUS:: Full Code INSURANCE COVERAGE / FINANCIAL ISSUES:: [employer] CURRENT HOME/COMMUNITY SERVICES/EQUIPMENT:: No current services or equipment. PRIMARY CARE PHYSICIAN:: Ibrahima Penn POTENTIAL DISCHARGE NEEDS:: Evalutations for further needs, follow up appointments. PATIENT/FAMILY EDUCATION NEEDS:: Review discharge instructions regarding activity levels and medications, discussion of self care needs including ask me three. ANTICIPATED BARRIERS TO DISCHARGE:: None identified. TRANSPORTATION:: Via private vehicle. PLAN:: Anticipate Carlos will return home once medically cleared. He will transport home via private vehicle by family vs RCT. He will follow up with his PCP and discharge plan of care. CM will continue to follow.
[2021-07-13] MEDS: predniSONE 20 MG TAB 40 MG PO (12:01)
[2021-07-13] MEDS: Thiamine 100 MG TAB PO (12:01)
[2021-07-13] MEDS: guaiFENesin 600 MG TABCR PO ×2 (12:01→22:12)
[2021-07-13] MEDS: Folic Acid 1 MG TAB PO (12:02)
[2021-07-13] MEDS: Pantoprazole 40 MG TABCR PO (12:02)
[2021-07-13] MEDS: Enoxaparin 40 MG/0.4 ML SYR SC (12:03)
[2021-07-13 12:46] LABS: Lab Add On Test DONE
[2021-07-13 12:53] LABS: C-Reactive Protein 2.75 mg/dL (0.0-0.3)
[2021-07-13 13:32] LABS: Procalcitonin < 0.1 ng/mL
[2021-07-13] MEDS: Melatonin 3 MG TAB 6 MG PO (23:57)
[2021-07-14] VITALS (8 sets, daily range): BP systolic 126–140; BP diastolic 77–80; PULSE 65–94; RESP 4–18; TEMP 37.1; O2SAT 92–98
[2021-07-14] MEDS: Albuterol/Ipratropium 3 ML UPD VIAL UPD ×2 (05:46→11:07)
[2021-07-14] MEDS: DOXYCYCLINE 100 MG in Normal Saline 100 ML IVPB (05:47)
[2021-07-14 07:14] LABS: Abs Immature Grans 0.07 10^3/uL (0.0-0.06); Absolute Monocyte Count 1.39 10^3/uL (0.1-0.8); Basophils % 0.1; HCT 47.5 % (40.0-50.0); Immature Grans % 0.5; Lymphocytes % 12.8; MCH 30.2 pg (27.0-33.0); MCHC 33.7 % (32.0-36.0); MCV 89.6 fL (80-95); Monocytes % 9.2; Neutrophils % 77.4; Nucleated RBC 0 %; Platelet Count 211 10^3/uL (130-400); RDW 13.4 % (11.8-14.1); RDW-SD 44.4 fL; WBC 15.13 10^3/uL (4.4-10.8)
[2021-07-14 07:15] LABS: Absolute Basophil Count 0.02 10^3/uL (0.0-0.2); Absolute Lymphocyte Count 1.94 10^3/uL (1.2-3.4); Absolute Neutrophil Count 11.71 10^3/uL (1.2-6.7)
[2021-07-14 07:32] LABS: Anion Gap 11.4 mmol/L (3-11); BUN 19 mg/dL (7-18); CO2 26.6 mmol/L (21.0-32.0); CREATININE 0.8 mg/dL (0.70-1.30); Calcium 9.6 mg/dL (8.5-10.1); Chloride 104 mmol/L (98-107); Glucose 122 mg/dL (74-106); Potassium 3.7 mmol/L (3.5-5.1); Sodium 142 mmol/L (136-145)
[2021-07-14 07:42] LABS: ALT 50 U/L (16-63); AST 23 U/L (15-37); Albumin 3.9 g/dL (3.4-5.0); Alkaline Phosphatase 206 U/L (46-116); Bilirubin, Direct 0.2 mg/dL (0.0-0.2); Bilirubin, Total 0.7 mg/dL (0.2-1.0); Total Protein 8.6 g/dL (6.4-8.2)
--- NOTE | 2021-07-14 08:32 | W.PULMCON ---
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 He should be discharged on Stiolto as well as a prn albuterol in addition to a steroid taper as outlined below. His smoking history is not very large so I am unclear as to whether or not he truly has COPD, although he does meet the definition of chronic bronchitis. He has a sub centimete HOANG nodule that is mixed that will need follow up in 3 months. With his smoking history he technically does not qualify for low dose CT scans for lung cancer screening yet. He seems motivated to quit smoking. Additionally he seems to have yunioruler COVID symptoms and he is interested in being assessed for this. Chronic bronchitis exacerbation - recommend discharge on Stiolto and prn albuterol - recommend prednisone taper as follows: - 40mg daily for 5 days total, then 30mg for 3 days, 20mg for 3 days, 10mg for 3 days, 5mg for 3 days - can continue doxycycline for a total of 5 days - I will schedule him for a follow up visit with me JOYCE Munoz - I will see him in post COVID clinic for further assessment and management Pulmonary Nodule - will repeat chest CT in 3 months to further assess this nodule Smoking - recommend cessation - we discussed this today for 3 minutes History of Present Illness Narrative: This is a 56 yo man who was admitted for COPD exacerbation whom I saw for this reason. He tells me he had COVID in May and does not feel as though he has fully recovered from this. His breathing has remained an issue in addition to fatigue, and difficulty concentrating. He has had a productive cough for the last few years but does continue to smoke cigarettes and cigars. He has a 10-15 pack year smoking history. He has not been on inhaler therapy at home. He has never had PFT's nor a pulmonary evaluation. He has no emphysema on his CT scan but there is a HOANG mixed nodule that could represent infection but will need to be followed. He if feeling better today and is anxious to get home. We discussed both his potential COVID longhauler syndrome as well as a potential COPD diagnosis and he is interested in receiving outpatient follow up for this. Review of Systems All systems reviewed & are unremarkable except as noted in HPI and below PFSH All Active Problems (Updated 07/14/21 @ 08:47 by Shoshana Benson MD) Pulmonary nodule (Acute) Nicotine dependence, cigarettes, uncomplicated (Acute) COVID-19 long hauler (Acute) Gastritis (Acute) DVT prophylaxis (Acute) COPD (chronic obstructive pulmonary disease) with acute bronchitis (Acute) Cough (Acute) Hypoxia (Acute) SARS-CoV-2 positive (Acute) Erectile dysfunction (Acute) Cervical arthritis (Acute) Left ankle sprain (Acute) Insomnia (Acute) Restless leg syndrome (Acute) Cigar smoker (Acute) Anxiety and depression (Chronic) History of alcohol dependence (Acute) Hypertension (Chronic) Surgical History History of cholecystectomy History of colon resection History of ileostomy History of knee surgery Family History Brother Alcohol abuse Father Cancer Stomach cancer Mother Depression Social History Smoking/Tobacco Use Status: Current-Occasional Tobacco Type: cigars Smokeless tobacco user: other Smoking risk assessment performed?: Yes Alcohol Intake: former Year quit: 2020 Drug use: Never Substance use type: does not use Adopted: No Caregiver/Support person: No Foster care: No Household members: other Housing: homeless Number of Children: 1 Communication Needs: None Education Level: high school Do you need help understanding health information?: Rarely current occupation: Unemployed - retired from [employer] Pets and animals: No Sexually active: Yes Do you think of yourself as: straight/heterosexual What is your relationship status?: How often do you talk on the phone with friends or family?: three or more times per week Do you belong to any clubs or organized social groups?: no Panel score (0-1 are the most socially isolated patients): 1 Cindi/Rastafari: Protestant Seatbelt use: always Helmet use: Yes 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 Do you feel safe at home: Yes Do you feel safe in your relationship?: Yes Visit Medication and Allergies Active Medications Generic Name Dose Route Start Last Admin Trade Name Freq PRN Reason Stop Dose Admin Acetaminophen 650 mg 07/13/21 21:00 Acetaminophen 325 Mg Tab PO Q6H PRN PRN Albuterol Sulfate 2.5 mg 07/13/21 05:11 Albuterol 2.5 Mg/3 Ml Inh Soln Vial UPD Q4H PRN PRN Albuterol/Ipratropium 3 ml 07/13/21 06:00 07/14/21 05:46 Albuterol/Ipratropium 3 Ml Upd Vial UPD 3 ml Q6H CACHORRO Administration Amlodipine Besylate 10 mg 07/13/21 08:30 07/13/21 08:19 Amlodipine 10 Mg Tab PO 10 mg DAILY CACHORRO Administration Dimethicone/Zinc Oxide 0 gm 07/13/21 05:11 Brad Protect Cream 142 Gm Tube TP PRN PRN Enoxaparin Sodium 40 mg 07/14/21 08:30 Enoxaparin 40 Mg/0.4 Ml Syr SC DAILY CACHORRO Folic Acid 1 mg 07/14/21 08:30 Folic Acid 1 Mg Tab PO QAM CACHORRO Guaifenesin 600 mg 07/13/21 11:15 07/13/21 22:12 Guaifenesin 600 Mg Tabcr PO 600 mg BID CACHORRO Administration Hydroxyzine HCl 25 mg 07/13/21 09:47 Hydroxyzine Hcl 25 Mg Tab PO Q8H PRN PRN anxiety Sodium Chloride 500 mls @ 0 mls/hr 07/12/21 20:19 Saline 500ml Bag IV PRN PRN As Directed Doxycycline Hyclate 100 mg/ 100 mls @ 100 mls/hr 07/13/21 06:00 07/14/21 05:47 Sodium Chloride IVPB 100 mls/hr Q12H CACHORRO Administration IV Miscellaneous Supplies 1 each 07/12/21 20:30 Iv Access IV DIRECTED CACHORRO Melatonin 6 mg 07/13/21 09:46 07/13/21 23:57 Melatonin 3 Mg Tab PO 6 mg HS PRN PRN Administration Multivitamins 1 tab 07/14/21 08:30 Multivitamin Tab PO DAILY CACHORRO Nicotine 14 mg 07/13/21 05:11 Nicotine 14 Mg/24 Hr Patch TD DAILY PRN PRN Pantoprazole Sodium 40 mg 07/14/21 07:30 Pantoprazole 40 Mg Tabcr PO DAILY@0730 [facility] Prednisone 40 mg 07/14/21 08:30 Prednisone 20 Mg Tab PO DAILY [facility] Sodium Chloride 0 ml 07/12/21 20:19 07/13/21 08:19 Normal Saline Flush 10 Ml Syr IVP 10 ml PRN PRN Administration Thiamine HCl 100 mg 07/14/21 08:30 Thiamine 100 Mg Tab PO QAM [facility] Allergies lisinopril Allergy (Severe, Verified 07/12/21 22:42) facial swelling Exam Narrative Exam Narrative: Gen: NAD, normal respiratory effort, well-nourished HENT: PERRL, nasal turbinates normal without erythema or inflammation, moist oral mucosa, Mallampati 2, No LAD or JVD Chest: No respiratory distress, normal appearance of chest, there is bilateral expiratory wheezing, normal inspiratory effort Heart: regular rate and rhythym, no murmurs, rubs or gallops Abdomen: Non-distended, soft, non tender Extremities: No clubbing, edema, cyanosis, rashes Neuro: AAOx3 , non focal Psych: cooperative, appropriate mental affect Results Last Vital Signs Temp 37.1 C 07/14/21 01:04 Pulse 94 H 07/14/21 01:04 Resp 18 07/14/21 01:04 BP 140/80 07/14/21 01:04 Pulse Ox 95 07/14/21 01:04 Labs Result diagrams: 07/14/21 06:23 07/14/21 06:23 Labs: Laboratory Results - last 24 hr 07/13/21 07/13/21 07/13/21 03:19 03:19 Unknown WBC RBC Hgb Hct MCV MCH MCHC RDW Plt Count MPV Immature Gran % Neutrophils % Lymphocytes % Monocytes % Eosinophils % Basophils % Nucleated RBC % Absolute Neutrophils Absolute Lymphocytes Absolute Monocytes Absolute Eosinophils Absolute Basophils Sodium Potassium Chloride Carbon Dioxide Anion Gap BUN Creatinine Estimated GFR/1.73 m2 Glucose Calcium Total Bilirubin Conjugated Bilirubin AST ALT Alkaline Phosphatase C-Reactive Protein 2.75 H Total Protein Albumin Procalcitonin < 0.1 Add-On Test Request DONE 07/14/21 07/14/21 07/14/21 06:23 06:23 06:23 WBC 15.13 H RBC 5.30 Hgb 16.0 Hct 47.5 MCV 89.6 MCH 30.2 MCHC 33.7 RDW 13.4 Plt Count 211 MPV 11.0 Immature Gran % 0.5 Neutrophils % 77.4 Lymphocytes % 12.8 Monocytes % 9.2 Eosinophils % 0.0 Basophils % 0.1 Nucleated RBC % 0 Absolute Neutrophils 11.71 H Absolute Lymphocytes 1.94 Absolute Monocytes 1.39 H Absolute Eosinophils 0.00 Absolute Basophils 0.02 Sodium 142 Potassium 3.7 Chloride 104 Carbon Dioxide 26.6 Anion Gap 11.4 H BUN 19 H Creatinine 0.8 Estimated GFR/1.73 m2 >= 60.00 Glucose 122 H Calcium 9.6 Total Bilirubin 0.7 Conjugated Bilirubin 0.2 AST 23 ALT 50 Alkaline Phosphatase 206 H C-Reactive Protein Total Protein 8.6 H Albumin 3.9 Procalcitonin Add-On Test Request
[2021-07-14] MEDS: amLODIPine 10 MG TAB PO (09:40)
[2021-07-14] MEDS: Multivitamin TAB 1 TAB PO (09:40)
[2021-07-14] MEDS: Folic Acid 1 MG TAB PO (09:40)
[2021-07-14] MEDS: Acetaminophen 325 MG TAB 650 MG PO (09:41)
[2021-07-14] MEDS: Thiamine 100 MG TAB PO (09:41)
[2021-07-14] MEDS: Pantoprazole 40 MG TABCR PO (09:41)
[2021-07-14] MEDS: predniSONE 20 MG TAB 40 MG PO (09:42)
[2021-07-14] MEDS: Enoxaparin 40 MG/0.4 ML SYR SC (09:42)
[2021-07-14] MEDS: guaiFENesin 600 MG TABCR PO (09:46)
[2021-07-14] MEDS: Normal Saline Flush 10 ML SYR IVP (10:01)
--- NOTE | 2021-07-14 10:14 | W.PM.DS.N ---
Date of service: 07/14/21 Time of Service: 08:40 DS: Diagnosis Discharge Diagnosis (1) COPD (chronic obstructive pulmonary disease) with acute bronchitis: Status: Acute (2) COVID-19 long hauler: Status: Chronic (3) Nicotine dependence, cigarettes, uncomplicated: Status: Chronic (4) Pulmonary nodule: Status: Acute Discharge Plan Disposition Patient Disposition: HOME Condition: Improving Discharge Details Reason For Visit: COPD Admit Date/Time: 07/13/21 05:11 Admit Provider: Jonathan Li Attending Provider: Jonathan Li Primary Care Provider: Ibrahima Penn [place] [facility] Course Hospital Course: Mr Brand is a 56 year old male with PMHx of tobacco abuse, COVID-19 in May of 2021, hypertension, anxiety, and depression, who was admitted to [facility] hospitalist service on 07/13/21 for acute exacerbation of COPD due to acute bronchitis. He tested negative for COVID-19 on this admission. His procalcitonin was negative, but CT of the chest did show mild interstitial thickening of the right lung, concerning for infection, and the patient was initiated on doxycycline as well as on systemic steroids and bronchodilators. He was evaluated by pulmonology, who felt that the patient likely has both COPD and COVID longhauler syndrome. He will need follow up for his HOANG lung nodule. While the patient needed 1L of O2 on day of admission, desaturating down to 88% on RA, he does not required oxygen today, either at rest or on ambulation. He is being discharged home today with a prescription for stiolto, prn albuterol, a prednisone taper, doxycycline to complete a 5 day course, and instructions for follow up with his PCP and with Dr Benson. He is instructed to stop smoking. Care for patient as well as completion of his discharge summary on day of discharge took 45 minutes. Home Meds and New Rx's Prescriptions: New prednisone 10 mg tablet See Rx Instructions .ROUTE .COMPLEX Qty: 32 0RF Rx Instructions: 40 mg PO daily x 3 days, then 30 mg PO daily x 3 days, then 20 mg PO daily x 3 days, then 10 mg PO daily x 3 days, then 5 mg PO daily x 3 days, then stop Stiolto Respimat 2.5-2.5 mcg/actuation mist 2 inh inhalation DAILY Qty: 4 0RF albuterol sulfate 90 mcg/actuation HFA aerosol inhaler 2 puff inhalation QID PRN PRNQty: 8.5 0RF doxycycline hyclate 100 mg capsule 100 mg PO Q12H Qty: 7 0RF Rx Instructions: next dose tonight benzonatate 200 mg capsule 200 mg PO TID PRNQty: 30 0RF omeprazole 20 mg capsule,delayed release(DR/EC) 20 mg PO DAILY Qty: 30 0RF Continued sildenafil 50 mg tablet 50 mg PO DAILY PRN (Reason: sexual activity) Qty: 20 6RF Rx Instructions: administer 30 minutes to 4 hours before activity escitalopram oxalate [Lexapro] 20 mg tablet 20 mg PO DAILY 0RF pramipexole 0.125 mg tablet 0.125 mg PO QHS Qty: 90 0RF amlodipine 10 mg tablet 10 mg PO DAILY Qty: 90 3RF trazodone 100 mg tablet 100 mg PO QHS PRN (Reason: sleep) Qty: 90 3RF hydroxyzine HCl 25 mg tablet 25 mg PO .q8hr PRN (Reason: anxiety) Qty: 90 3RF Discharge Instructions Instructions: Doxycycline (By mouth), Prednisone (By mouth), Tiotropium/Olodaterol (By breathing), How to Stop Smoking (DC), Cigarette Smoking and Your Health (GEN), Acute Bronchitis (ED), COPD (Chronic Obstructive Pulmonary Disease) (DC) Additional Instructions: Finish your antibiotics (doxycycline) and steroid taper (prednisone) as prescribed. Return to the hospital with any fever, bleeding, chest pain, or worsening shortness of breath. You must stop smoking! Follow up with your PCP in 1-2 weeks. Follow up with Dr Benson. Referrals: Shoshana Benson MD [ [facility] STAFF PHYSICIAN] - Ibrahima Penn DO [Primary Care Provider] - Activity:: Activity as Tolerated Equipment/Supplies:: No Equipment Needed Diet:: Low Sodium Discharge Orders Discharge Orders: Discharge Order (Routine); Ordered 07/14/21 Ordered By: Alessandra Jordan DS: Summary Time Spent with Patient providing and/or coordinating discharge services: Greater than 30 minutes Status at Discharge Functional status at discharge: independent ambulation Overall status at discharge: patient is progressing back to baseline Mental Status: mental status grossly normal Speech and Movement: speech and movement normal Mood: congruent mood Affect: normal affect Exam Narrative Exam Narrative: General: Very pleasant middle-aged male, A&Ox3, NAD HEENT: EOMI, MMM Heart: RRR, no m/r/g Lungs: Expiratory wheezing B Abdomen: soft, nontender, nondistended Extremities: no edema BLEs. Psych Mental Status: mental status grossly normal Speech and Movement: speech and movement normal Mood: congruent mood Affect: normal affect DS: Data Vitals/I&O Vitals and I&O: Vital Signs Temperature 37.1 C 07/14/21 01:04 Temperature Source Temporal Artery Scan 07/14/21 01:04 Pulse 94 H 07/14/21 01:04 Pulse Rhythm Regular 07/14/21 00:55 Pulse 84 07/13/21 05:10 Respiratory Rate 18 07/14/21 01:04 Respiratory Effort 07/14/21 00:55 Respiratory Depth Normal 07/14/21 00:55 Respiratory Pattern Normal 07/14/21 00:55 Blood Pressure 140/80 07/14/21 01:04 Blood Pressure Mean 93 07/13/21 23:45 Blood Pressure Position Supine 07/13/21 05:30 Pulse Oximetry 95 07/14/21 01:04 Oxygen Delivery Method Nasal Cannula 07/14/21 01:04 Oxygen Flow Rate 1 07/14/21 01:04 Pain Level 3 07/14/21 09:41 Intake & Output 07/13/21 07/13/21 07/14/21 11:59 23:59 11:59 Intake Total 1350 / 1950 600 / 1950 120 / 120 Output Total 700 / 700 400 / 400 Balance 1350 / 1250 -100 / 1250 -280 / -280 Weight 82.6 kg 84 kg Intake: IV 1100 / 1200 100 / 1200 Oral 250 / 750 500 / 750 120 / 120 Output: Urine 700 / 700 400 / 400 Other: Urine Color Straw Dark Kristen Urine Appearance Clear Clear Urine Odor Normal None Voiding Methods Urinal Urinal Data Completed and Pending Completed studies during hospitalization [Text1]: CT chest/abdomen/pelvis: 1. No evidence pulmonary embolism, thoracic aortic dissection or aneurysm. 2. Question of mild interstitial thickening particularly in the right lung.? Edema, inflammation or infection should be considered.? Please correlate clinically.? 3. Findings suspicious for enteritis.? Labs on day of discharge: Labs from last 24 hours 07/14/21 07/14/21 07/14/21 06:23 06:23 06:23 WBC 15.13 H RBC 5.30 Hgb 16.0 Hct 47.5 MCV 89.6 MCH 30.2 MCHC 33.7 RDW 13.4 Plt Count 211 MPV 11.0 Immature Gran % 0.5 Neutrophils % 77.4 Lymphocytes % 12.8 Monocytes % 9.2 Eosinophils % 0.0 Basophils % 0.1 Nucleated RBC % 0 Absolute Neutrophils 11.71 H Absolute Lymphocytes 1.94 Absolute Monocytes 1.39 H Absolute Eosinophils 0.00 Absolute Basophils 0.02 Sodium 142 Potassium 3.7 Chloride 104 Carbon Dioxide 26.6 Anion Gap 11.4 H BUN 19 H Creatinine 0.8 Estimated GFR/1.73 m2 >= 60.00 Glucose 122 H Calcium 9.6 Total Bilirubin 0.7 Conjugated Bilirubin 0.2 AST 23 ALT 50 Alkaline Phosphatase 206 H C-Reactive Protein Total Protein 8.6 H Albumin 3.9 Procalcitonin Urine Legionella Ag Ur Strep pneumoniae Ag Add-On Test Request 07/13/21 07/13/21 07/13/21 Unknown 12:50 12:50 WBC RBC Hgb Hct MCV MCH MCHC RDW Plt Count MPV Immature Gran % Neutrophils % Lymphocytes % Monocytes % Eosinophils % Basophils % Nucleated RBC % Absolute Neutrophils Absolute Lymphocytes Absolute Monocytes Absolute Eosinophils Absolute Basophils Sodium Potassium Chloride Carbon Dioxide Anion Gap BUN Creatinine Estimated GFR/1.73 m2 Glucose Calcium Total Bilirubin Conjugated Bilirubin AST ALT Alkaline Phosphatase C-Reactive Protein Total Protein Albumin Procalcitonin Urine Legionella Ag Pending Ur Strep pneumoniae Ag Pending Add-On Test Request DONE 07/13/21 07/13/21 03:19 03:19 WBC RBC Hgb Hct MCV MCH MCHC RDW Plt Count MPV Immature Gran % Neutrophils % Lymphocytes % Monocytes % Eosinophils % Basophils % Nucleated RBC % Absolute Neutrophils Absolute Lymphocytes Absolute Monocytes Absolute Eosinophils Absolute Basophils Sodium Potassium Chloride Carbon Dioxide Anion Gap BUN Creatinine Estimated GFR/1.73 m2 Glucose Calcium Total Bilirubin Conjugated Bilirubin AST ALT Alkaline Phosphatase C-Reactive Protein 2.75 H Total Protein Albumin Procalcitonin < 0.1 Urine Legionella Ag Ur Strep pneumoniae Ag Add-On Test Request 07/13/21 12:50 Sputum Sputum Culture - Pending Preliminary micro results at discharge 07/12/21 21:52 Blood Culture - Preliminary Blood NO GROWTH 24 HOURS 07/12/21 21:41 Blood Culture - Preliminary Blood NO GROWTH 24 HOURS 07/13/21 12:50 Sputum Culture - Pending Sputum PFSH All Active Problems (Updated 07/14/21 @ 10:49 by Alessandra Jordan MD) Pulmonary nodule (Acute) Nicotine dependence, cigarettes, uncomplicated (Chronic) COVID-19 long hauler (Chronic) Gastritis (Acute) DVT prophylaxis (Acute) COPD (chronic obstructive pulmonary disease) with acute bronchitis (Acute) Cough (Acute) Hypoxia (Acute) SARS-CoV-2 positive (Acute) Erectile dysfunction (Acute) Cervical arthritis (Acute) Left ankle sprain (Acute) Insomnia (Acute) Restless leg syndrome (Acute) Cigar smoker (Acute) Anxiety and depression (Chronic) History of alcohol dependence (Acute) Hypertension (Chronic) Surgical History History of cholecystectomy History of colon resection History of ileostomy History of knee surgery Family History Brother Alcohol abuse Father Cancer Stomach cancer Mother Depression Social History Smoking/Tobacco Use Status: Current-Occasional Tobacco Type: cigars Smokeless tobacco user: other Smoking risk assessment performed?: Yes Alcohol Intake: former Year quit: 2020 Drug use: Never Substance use type: does not use Adopted: No Caregiver/Support person: No Foster care: No Household members: other Housing: homeless Number of Children: 1 Communication Needs: None Education Level: high school Do you need help understanding health information?: Rarely current occupation: Unemployed - retired from [employer] Pets and animals: No Sexually active: Yes Do you think of yourself as: straight/heterosexual What is your relationship status?: How often do you talk on the phone with friends or family?: three or more times per week Do you belong to any clubs or organized social groups?: no Panel score (0-1 are the most socially isolated patients): 1 Cindi/Latter-Day: Cheondoism Seatbelt use: always Helmet use: Yes 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
[2021-07-14 15:35] LABS: Streptococcus Pneumoniae Ag, U Negative (Negative)
--- NOTE | 2021-07-14 16:09 | PDOC.CMDIS ---
- If Service Date Differs Date of service: 07/14/21 Time of Service: 16:09 LACE Index Scoring Tool - Questions: Length of Stay (in days): 1 Acuity (Admit via E.D.?): Yes Comorbidities: Chronic Pulmonary Disease E.D. Visits: 2 - Answers: Total Score: 8 Risk of Readmission: Low Risk Care Management Discharge Reason for Hospitalization: COPD Discharge Plan: Carlos returned home with no new services today. His girlfriend drove him home via private vehicle. He will follow up with his PCP and discharge plan of care. He was happy to be going home. Patient/Family Education Needs: Review discharge instructions regarding activity levels and medications, discussion of self care needs including ask me three.
[2021-07-14 18:27] LABS: Legionella Ag Detection Urine Negative (Negative)
== END 2021-07-14 13:00 | disposition home or self-care (01) | DRG 192 ==
LOC: ER 07-13 05:39 → ICU 07-13 05:40
PROVIDERS: Internal Medicine; Admitting Provider General Practice; Emergency Provider Registered Nurse Emergency; PCP Family Medicine; Visit Provider General Practice
DX: J44.0 Chronic obstructive pulmonary disease with (acute) lower respiratory infection (principal); G25.81 Restless legs syndrome; F41.9 Anxiety disorder, unspecified; F32.A Depression, unspecified; I10 Essential (primary) hypertension; F17.290 Nicotine dependence, other tobacco product, uncomplicated; F10.21 Alcohol dependence, in remission; J20.9 Acute bronchitis, unspecified; R53.1 Weakness; K29.00 Acute gastritis without bleeding; K70.30 Alcoholic cirrhosis of liver without ascites; R91.1 Solitary pulmonary nodule; U09.9 Post COVID-19 condition, unspecified; F17.210 Nicotine dependence, cigarettes, uncomplicated
CPT/HCPCS: 36415; 71275; 74177; 80048; 80053; 80076; 84145; 87040; 87449; 87635; 93005; 94640; 96361; 96374; 96375; 99285; J1650; 83880; 84484; 85025; 86140; 87070; 87205; 87899; 93010; 99222; 99239; J1100; J2930; J3490; J7512; J7620